=== PATIENT | female | born 1960 | race African-American/Black ===

== ENCOUNTER 2021-11-26 11:25 | Outpatient (CLI) | payer OTHER | END 2021-11-26 11:26 | disposition home or self-care (01) | LOC: CSHLAB 11:25 | PROVIDERS: ATTEND Internal Medicine Gastroenterology | DX: Z20.822 Contact with and (suspected) exposure to COVID-19 (principal); Z12.11 Encounter for screening for malignant neoplasm of colon | CPT/HCPCS: U0003; U0005 ==

== ENCOUNTER 2021-12-02 08:07 | Day surgery (SDC) | payer OTHER ==
[2021-11-27 14:17] VITALS: BMI 38.5
[~2021-12-02 08:07] MED LIST: Lidocaine 2% MPF 10 ML AMP (For Epidural Use) ONE; PROPOFOL 20 ML ONE; PROPOFOL 40 ML ONE
[2021-12-02] MEDS ORDERED: Lidocaine 1% MPF 2 ML VIAL ONE (10:13)
[2021-12-02] MEDS ORDERED: PHENYLEPHRINE-NS 100 MCG/ML 10 ML SYRINGE ONE (10:44)
== END 2021-12-02 11:50 | disposition home or self-care (01) ==
LOC: CSHSDC 08:07
PROVIDERS: ATTEND Internal Medicine Gastroenterology
PROC: 0DJD8ZZ Inspection of Lower Intestinal Tract, Via Natural or Artificial Opening Endoscopic (ICD-10-PCS; principal; 2021-12-02)
DX: Z12.11 Encounter for screening for malignant neoplasm of colon (principal); K57.30 Diverticulosis of large intestine without perforation or abscess without bleeding; K64.9 Unspecified hemorrhoids; I10 Essential (primary) hypertension; E78.5 Hyperlipidemia, unspecified; E11.9 Type 2 diabetes mellitus without complications; D64.9 Anemia, unspecified; E66.9 Obesity, unspecified; Z68.38 Body mass index [BMI] 38.0-38.9, adult; Z86.010 Personal history of colon polyps; Z79.84 Long term (current) use of oral hypoglycemic drugs; Z79.890 Hormone replacement therapy; Z79.899 Other long term (current) drug therapy; Z88.2 Allergy status to sulfonamides; Z91.040 Latex allergy status
CPT/HCPCS: J2704

== ENCOUNTER 2021-12-03 17:05 | Inpatient (IN) | payer OTHER ==
[~2021-12-03 17:05] MED LIST changes: +Iopamidol 300 61% 100 ML VIAL FS ONE; -Lidocaine 2% MPF 10 ML AMP (For Epidural Use) ONE; -PROPOFOL 20 ML ONE; -PROPOFOL 40 ML ONE
[2021-12-03] MEDS ORDERED: Morphine 4 MG/ML VIAL ONE (18:26)
[2021-12-03] MEDS ORDERED: Ondansetron PF 4 MG/2 ML Vial ONE ×2 (18:27→21:28)
[2021-12-03 18:48] LABS: #Eosinphils 0.1 10x3/uL (0.0-0.5); #Monocytes 0.6 10x3/uL (0.0-1.1); #Neutrophils 10.3 10x3/uL (1.5-8.4); %Basophils 0.3 % (0.0-2.0); %Eosinophils 0.4 % (0.0-6.0); %Lymphocytes 4.1 % (18.0-47.0); %Monocytes 5.1 % (0.0-10.0); %Neutrophils 89.8 % (40.0-75.0); Hemoglobin 12.1 g/dL (12.0-15.5); Mean Corpuscular HGB CONC 35.5 g/dL (32.0-36.0); Mean Corpuscular Hemoglobin 29.8 pg (27.0-33.0); Platelet Count 247 10x3/uL (150-450); RBC Distribution Width 13.2 % (11.5-14.5); Red Blood Cell (RBC) Count 4.06 10x6/uL (3.90-5.03); White Blood Cell (WBC) Count 11.4 10x3/uL (3.5-10.5)
[2021-12-03 19:02] LABS: ALT (SGPT) 261 U/L (8-55); AST (SGOT) 413 U/L (5-34); Albumin 4.1 g/dL (3.5-5.0); Alkaline Phosphatase 104 U/L (40-110); Anion Gap 18 mmol/L (10-20); BUN (Urea Nitrogen) 16 mg/dL (9.8-20.1); Bilirubin, Total 1.4 mg/dL (0.2-1.2); Calc. Creatinine Clearance 0 mL/min (70-130); Calcium 9.8 mg/dL (7.8-10.44); Carbon Dioxide 21 mmol/L (22-29); Chloride 103 mmol/L (98-107); Estimated GFR 62; Globulin 3.3 g/dL (2.4-3.5); Glucose 145 mg/dL (70-105); Lipase 23 U/L (8-78); Potassium 3.8 mmol/L (3.5-5.1); Protein, Total 7.4 g/dL (6.0-8.3); Sodium 138 mmol/L (136-145)
[2021-12-03] MEDS ORDERED: Piperacillin/Tazobactam 4.5 GM VIAL ONE (20:04)
[2021-12-03 22:30] LABS: Lactic Acid 3.2 mmol/L (0.5-2.2)
[2021-12-03] MEDS ORDERED: HYDROcodone/Acetaminophen 5/325 mg Tablet PO PRN (23:31)
[2021-12-03] MEDS ORDERED: Senokot S 8.6-50 MG TAB PO PRN (23:31)
[2021-12-03] MEDS ORDERED: Ondansetron PF 4 MG/2 ML Vial IVP PRN (23:31)
[2021-12-03] MEDS ORDERED: HumaLOG 300 UNITS/3 ML VIAL SC PRN (23:31)
[2021-12-03] MEDS ORDERED: Acetaminophen 325 MG TAB PO PRN (23:31)
[2021-12-03] MEDS ORDERED: Dextrose 5% in Water 1,000 ML IV PRN (23:31)
[2021-12-03] MEDS ORDERED: Dextrose 50% Abboject 50 ML SYRINGE SLOW IVP PRN (23:31)
[2021-12-03] MEDS ORDERED: Calcium Carbonate 500 MG ChewTAB PO PRN (23:31)
[2021-12-03] MEDS ORDERED: Morphine 4 MG/ML VIAL SLOW IVP PRN (23:37)
[2021-12-04 00:40] VITALS: BMI 38.7
[2021-12-04 01:01] LABS: SARS-CoV-2 NAA Rapid Test Not Detected (NotDetected)
[2021-12-04] MEDS: Sodium Chloride 0.9% 1,000 ML IV SCH ×3 (02:13→19:40)
[2021-12-04] MEDS: Piperacillin/Tazobactam 3.375 GM in Sodium Chloride 0.9% 100 ML IVPB SCH ×3 (03:34→20:53)
[2021-12-04 04:40] LABS: Mean Corpuscular HGB CONC 36.4 g/dL (32.0-36.0); Mean Corpuscular Hemoglobin 29.8 pg (27.0-33.0); Mean Corpuscular Volume 81.8 fl (81.6-98.3); Mean Platelet Volume 9.7 fl (7.4-10.4); Platelet Count 254 10x3/uL (150-450); RBC Distribution Width 13.4 % (11.5-14.5); Red Blood Cell (RBC) Count 3.36 10x6/uL (3.90-5.03); White Blood Cell (WBC) Count 11.9 10x3/uL (3.5-10.5)
[2021-12-04 04:54] LABS: MDiff Complete? YES
[2021-12-04 04:57] LABS: Band 22 % (5-11); Lymphocytes 7 % (21-51); Monocytes 6 % (0-10); Neutrophil 65 % (42-75)
[2021-12-04 04:58] LABS: Platelet Morphology Comment Appears Adequate; RBC Morphology Normal
[2021-12-04 05:17] LABS: Lactic Acid 1.1 mmol/L (0.5-2.2)
[2021-12-04 05:58] LABS: ALT (SGPT) 156 U/L (8-55); AST (SGOT) 128 U/L (5-34); Albumin 3.3 g/dL (3.5-5.0); Alkaline Phosphatase 83 U/L (40-110); Anion Gap 15 mmol/L (10-20); BUN (Urea Nitrogen) 14 mg/dL (9.8-20.1); Bilirubin, Total 1.2 mg/dL (0.2-1.2); Calc. Creatinine Clearance 85 mL/min (70-130); Calcium 8.3 mg/dL (7.8-10.44); Carbon Dioxide 22 mmol/L (22-29); Chloride 107 mmol/L (98-107); Estimated GFR 62; Globulin 2.6 g/dL (2.4-3.5); Glucose 139 mg/dL (70-105); Potassium 3.9 mmol/L (3.5-5.1); Protein, Total 5.9 g/dL (6.0-8.3); Sodium 140 mmol/L (136-145)
[2021-12-04] MEDS ORDERED: Levothyroxine Sodium 25 MCG TAB PO SCH (06:00)
[2021-12-04] MEDS: Levothyroxine 150 MCG TAB PO SCH (07:39)
[2021-12-04] MEDS: Enoxaparin Sodium 40 MG/0.4 ML SYRINGE SC SCH (08:31)
[2021-12-04] MEDS: Famotidine/PF 20 mg/2ml Vial SLOW IVP SCH ×2 (08:31→19:58)
[2021-12-04 13:18] LABS: Hep B Surf Ag Non-Reactive S/CO (NonReactive)
[2021-12-04 13:20] LABS: Hep C IgG Ab Non-Reactive (NonReactive); Hep C Index 0.08 S/CO (0-0.79)
[2021-12-04 13:21] LABS: HBCM Index 0.43 S/CO (0-0.79); Hepatitis B Core IgM Abs Non-Reactive (NonReactive)
[2021-12-04 14:06] LABS: Hemoglobin A1c 6.3 % (4.0-6.0)
[2021-12-04 14:50] LABS: Hep A IgM AB Non-Reactive (NonReactive); Hep A IgM S/CO 0.15 S/CO (0-0.79)
[2021-12-05 04:14] LABS: #Eosinphils 0.2 10x3/uL (0.0-0.5); #Monocytes 0.7 10x3/uL (0.0-1.1); #Neutrophils 6.3 10x3/uL (1.5-8.4); %Basophils 0.2 % (0.0-2.0); %Eosinophils 2.7 % (0.0-6.0); %Lymphocytes 11.6 % (18.0-47.0); %Monocytes 8.8 % (0.0-10.0); %Neutrophils 76.2 % (40.0-75.0); Hemoglobin 9.3 g/dL (12.0-15.5); Mean Corpuscular HGB CONC 35.5 g/dL (32.0-36.0); Mean Corpuscular Hemoglobin 29.5 pg (27.0-33.0); Mean Corpuscular Volume 83.2 fl (81.6-98.3); Mean Platelet Volume 10.1 fl (7.4-10.4); Platelet Count 244 10x3/uL (150-450); RBC Distribution Width 13.2 % (11.5-14.5); Red Blood Cell (RBC) Count 3.15 10x6/uL (3.90-5.03); White Blood Cell (WBC) Count 8.2 10x3/uL (3.5-10.5)
[2021-12-05] MEDS: Piperacillin/Tazobactam 3.375 GM in Sodium Chloride 0.9% 100 ML IVPB SCH ×2 (04:26→13:26)
[2021-12-05] MEDS: Sodium Chloride 0.9% 1,000 ML IV SCH (04:26)
[2021-12-05 04:46] LABS: ALT (SGPT) 125 U/L (8-55); AST (SGOT) 77 U/L (5-34); Albumin 3.1 g/dL (3.5-5.0); Alkaline Phosphatase 90 U/L (40-110); Anion Gap 15 mmol/L (10-20); BUN (Urea Nitrogen) 14 mg/dL (9.8-20.1); Bilirubin, Total 1.3 mg/dL (0.2-1.2); CRP (Inflammatory) 14.14 mg/dL (= or < 0.5); Calc. Creatinine Clearance 84 mL/min (70-130); Calcium 8.4 mg/dL (7.8-10.44); Carbon Dioxide 21 mmol/L (22-29); Cardiac Risk 6.2 (Less than 4.5); Chloride 109 mmol/L (98-107); Cholesterol 167 mg/dl (< 200 Desired); Estimated GFR 62; Globulin 2.6 g/dL (2.4-3.5); Glucose 129 mg/dL (70-105); HDL Cholesterol 27 mg/dL (>60 Neg Risk); LDL Cholesterol, Calculated 118 mg/dL; Magnesium 1.7 mg/dL (1.6-2.6); Potassium 3.5 mmol/L (3.5-5.1); Protein, Total 5.7 g/dL (6.0-8.3); Sodium 141 mmol/L (136-145); Triglycerides 108 mg/dL (Less than 150)
[2021-12-05] MEDS: Levothyroxine 150 MCG TAB PO SCH (06:22)
[2021-12-05] MEDS: Enoxaparin Sodium 40 MG/0.4 ML SYRINGE SC SCH (09:02)
[2021-12-05] MEDS: Famotidine/PF 20 mg/2ml Vial SLOW IVP SCH ×2 (09:02→20:39)
[2021-12-05] MEDS ORDERED: Sodium Chloride 0.9% 1,000 ML IV SCH (11:57)
[2021-12-05] MEDS: metroNIDAZOLE 500 MG TAB PO SCH (20:39)
[2021-12-05] MEDS: Ciprofloxacin 500 MG TAB PO SCH (20:39)
[2021-12-06 03:59] LABS: ALT (SGPT) 107 U/L (8-55); AST (SGOT) 62 U/L (5-34); Albumin 3.2 g/dL (3.5-5.0); Alkaline Phosphatase 98 U/L (40-110); Anion Gap 13 mmol/L (10-20); BUN (Urea Nitrogen) 14 mg/dL (9.8-20.1); Bilirubin, Total 0.6 mg/dL (0.2-1.2); Calc. Creatinine Clearance 91 mL/min (70-130); Calcium 8.5 mg/dL (7.8-10.44); Carbon Dioxide 21 mmol/L (22-29); Chloride 110 mmol/L (98-107); Estimated GFR 68; Globulin 2.7 g/dL (2.4-3.5); Glucose 131 mg/dL (70-105); Magnesium 1.7 mg/dL (1.6-2.6); Potassium 3.5 mmol/L (3.5-5.1); Protein, Total 5.9 g/dL (6.0-8.3); Sodium 140 mmol/L (136-145)
[2021-12-06 04:02] LABS: Hemoglobin 9.4 g/dL (12.0-15.5); Mean Corpuscular Hemoglobin 29.3 pg (27.0-33.0); Mean Corpuscular Volume 81.3 fl (81.6-98.3); Mean Platelet Volume 9.8 fl (7.4-10.4); Platelet Count 251 10x3/uL (150-450); RBC Distribution Width 13.2 % (11.5-14.5); Red Blood Cell (RBC) Count 3.21 10x6/uL (3.90-5.03); White Blood Cell (WBC) Count 7.3 10x3/uL (3.5-10.5)
[2021-12-06 04:06] LABS: MDiff Complete? YES
[2021-12-06 05:13] LABS: Band 3 % (5-11); Eosinophils 3 % (0-10); Lymphocytes 16 % (21-51); Monocytes 9 % (0-10); Neutrophil 69 % (42-75)
[2021-12-06 05:14] LABS: Platelet Morphology Comment Appears Adequate; RBC Morphology Normal
[2021-12-06] MEDS: Ciprofloxacin 500 MG TAB PO SCH (06:36)
[2021-12-06] MEDS: Levothyroxine 150 MCG TAB PO SCH (06:37)
[2021-12-06] MEDS: metroNIDAZOLE 500 MG TAB PO SCH (09:45)
[2021-12-06] MEDS: Famotidine/PF 20 mg/2ml Vial SLOW IVP SCH (09:45)
[2021-12-06] MEDS: Enoxaparin Sodium 40 MG/0.4 ML SYRINGE SC SCH (09:45)
[2021-12-06 12:05] VITALS: BP 138/78; TEMP 97.5
== END 2021-12-06 13:07 | disposition home or self-care (01) | DRG 872 ==
LOC: CSHERS 17:05 → CSHTELE 12-04 00:32
PROVIDERS: ADMIT Student in an Organized Health Care Education/Training Program; ATTEND Family Medicine
DX: A41.9 Sepsis, unspecified organism (principal); K80.20 Calculus of gallbladder without cholecystitis without obstruction; E03.9 Hypothyroidism, unspecified; E78.5 Hyperlipidemia, unspecified; R59.1 Generalized enlarged lymph nodes; E55.9 Vitamin D deficiency, unspecified; N18.2 Chronic kidney disease, stage 2 (mild); R10.9 Unspecified abdominal pain; Z20.822 Contact with and (suspected) exposure to COVID-19; E11.22 Type 2 diabetes mellitus with diabetic chronic kidney disease; I12.9 Hypertensive chronic kidney disease with stage 1 through stage 4 chronic kidney disease, or unspecified chronic kidney disease; Z79.899 Other long term (current) drug therapy; Z79.84 Long term (current) use of oral hypoglycemic drugs; Z91.040 Latex allergy status; Z88.2 Allergy status to sulfonamides; Z98.890 Other specified postprocedural states
CPT/HCPCS: 36415; 36416; 71045; 71046; 74177; 76705; 78227; 80053; 80061; 80074; 83036; 83605; 83690; 83735; 83880; 84439; 84443; 84484; 85025; 86140; 87040; 87804; 93005; 94760; 96361; 96365; 96375; 96376; J1650; J2270; J2405; J2543; J3490; J7050; Q9967; S0028; U0002